=== PATIENT | male | born 1965 | race Caucasian/White ===

== ENCOUNTER 2018-11-14 17:18 | Inpatient (IN) | payer MEDICAID ==
[~2018-11-14 17:18] MED LIST: CA CHLORIDE 10% 10 ML SYRINGE; DEXTROSE 50% 50 ML SYRINGE; EPINEPHrine 0.1 MG/ML SYG; ETOMIDATE 20 MG INJ; NA BICARBONATE 8.4% 50 ML SYG; POTASSIUM CHLORIDE 20 MEQ/SW 50 ML IVPB; SUCCINYLCHOLINE CHLORIDE 100 MG/5 ML SYG IV
[2018-11-14] MEDS: LORAZEPAM 2 MG INJ IV (17:47)
[2018-11-14] MEDS: DILTIAZEM 25 MG INJ IV (17:47)
[2018-11-14] MEDS: PANTOPRAZOLE 40 MG INJ IV (17:48)
[2018-11-14] MEDS ORDERED: FENTAnyl 50 MCG/ML VIAL (17:48)
[2018-11-14] MEDS: LACTATED RINGER'S 1,000 ML IV ×2 (17:52→18:57)
[2018-11-14] MEDS: SOD CHLORIDE 0.9% 1,000 ML IV ×3 (18:00→21:13)
[2018-11-14] MEDS: PROPOFOL 100 ML IV (18:02)
[2018-11-14] MEDS: CEFTRIAXONE 1 GM/50 ML (PMX) 50 ML IVPB (18:02)
[2018-11-14] MEDS: FENTAnyl 50 MCG/ML VIAL IV (18:04)
[2018-11-14] MEDS: ONDANSETRON INJ 8 MG in DEXTROSE 5% 50 ML IVPB (18:52)
[2018-11-14] MEDS: OCTREOTIDE 50 MCG in SOD CHLORIDE 0.9% 25 ML IVPB (18:53)
[2018-11-14] MEDS: PHYTONADIONE 10 MG in DEXTROSE 5% 50 ML IVPB (19:09)
[2018-11-14] MEDS: MIDAZOLAM (DRIP) 50 mg/50 mL 50 ML IV (19:09)
[2018-11-14] MEDS: ACETAMINOPHEN 650 MG SUPP PR (19:15)
[2018-11-14] MEDS: METOPROLOL 5 MG INJ IV (20:16)
[2018-11-14] MEDS: OCTREOTIDE 500 MCG in SOD CHLORIDE 0.9% 49 ML IV (21:02)
[2018-11-14] MEDS ORDERED: ACETAMINOPHEN 650 MG SUPP PR (21:30)
[2018-11-14] MEDS ORDERED: ONDANSETRON 4 MG INJ IV (21:30)
[2018-11-14] MEDS ORDERED: LORAZEPAM 2 MG INJ IV (21:30)
[2018-11-14] MEDS: AMIODARONE 150MG/D5W BOLUS 100 ML IV (21:42)
[2018-11-14] MEDS ORDERED: VANCOMYCIN IV PER PHARMACY XX (23:00)
[2018-11-14] MEDS ORDERED: NORepinephrine 8MG/250 ML (PMX 250 ML (23:15)
[2018-11-14] MEDS ORDERED: PHENYLephrine 20MG IN 250 ML 250 ML IV (23:30)
[2018-11-14] MEDS ORDERED: DEXTROSE 50% 50 ML SYRINGE (23:48)
[2018-11-15] MEDS: PHENYLephrine 20MG IN 250 ML 250 ML IV (00:13)
[2018-11-15] MEDS: SOD CHLORIDE 0.9% 1,000 ML IV ×3 (00:15→00:32)
[2018-11-15] MEDS: DEXTROSE 50% 50 ML SYRINGE IV ×2 (00:16→05:57)
[2018-11-15] MEDS: PANTOPRAZOLE IV 80 MG in SOD CHLORIDE 0.9% 100 ML IV ×3 (00:24→08:29)
[2018-11-15] MEDS ORDERED: DEXTROSE 50% 50 ML SYRINGE IV (00:30)
[2018-11-15] MEDS ORDERED: GLUCOSE GEL 15 GRAM TUBE PO ×2 (00:30)
[2018-11-15] MEDS ORDERED: GLUCAGON 1 MG INJ IM (00:30)
[2018-11-15] MEDS ORDERED: NORepinephrine 8MG/250 ML (PMX 250 ML IV (00:30)
[2018-11-15] MEDS ORDERED: GLUCOSE GEL 15 GRAM TUBE BUCCAL (00:30)
[2018-11-15] MEDS: NORepinephrine 8MG/250 ML (PMX 250 ML IV ×3 (00:40→10:31)
[2018-11-15] MEDS: PROPOFOL 100 ML IV ×2 (00:41→06:12)
[2018-11-15] MEDS: IPRATROPIUM (HFA) 12.9 GM INHALER INH (00:42)
[2018-11-15] MEDS: ALBUTEROL HFA 8 GM INHALER INH (00:42)
[2018-11-15] MEDS: INSULIN ASPART [NOVOLOG] 3 ML PEN SC ×4 (00:46→12:03)
[2018-11-15] MEDS: CEFTRIAXONE 1 GM/50 ML (PMX) 50 ML IVPB (00:56)
[2018-11-15] MEDS: OCTREOTIDE 1 MG in DEXTROSE 5% 95 ML IV (00:58)
[2018-11-15] MEDS: PIPER-TAZO 3.375 GM IV (PMX) 100 ML IVPB ×3 (01:39→11:29)
[2018-11-15] MEDS: PHENYLephrine 80 MG in DEXTROSE 5% 242 ML IV ×3 (01:40→10:32)
[2018-11-15] MEDS ORDERED: NA BICARBONATE 8.4% 50 ML SYG (01:42)
[2018-11-15] MEDS: NA BICARBONATE 8.4% 50 ML SYG IV ×2 (01:47→09:21)
[2018-11-15] MEDS: VANCOMYCIN HCL 1.75 GM in SOD CHLORIDE 0.9% 500 ML IVPB (02:18)
[2018-11-15] MEDS: MIDAZOLAM (DRIP) 50 mg/50 mL 50 ML IV (02:27)
[2018-11-15] MEDS: VASOPRESSIN 60 UNIT in DEXTROSE 5% 57 ML IV (05:55)
[2018-11-15] MEDS: DEXTROSE 5% 1,000 ML IV (06:47)
[2018-11-15] MEDS: DOPamine 800 MG in DEXTROSE 5% 230 ML IV (08:58)
[2018-11-15] MEDS ORDERED: SODIUM BICARBONATE IN D5W 1,000 ML IV (09:00)
[2018-11-15] MEDS: POTASSIUM CHLORIDE 100 ML IVPB ×2 (09:11→10:25)
[2018-11-15] MEDS: SODIUM BICARBONATE IN D5W 1,000 ML IV (09:33)
[2018-11-15] MEDS: LACTATED RINGER'S 1,000 ML IV (11:46)
[2018-11-15] MEDS ORDERED: VANCOMYCIN 1 GM 250 ML IVPB (12:00)
[2018-11-15] MEDS ORDERED: PIPER-TAZO 2.25 GM/NS 50 ML IVPB (18:00)
== END 2018-11-15 12:15 | disposition expired | DRG 871 ==
LOC: E/R 17:18 → ICU 20:05
PROC: 0BH17EZ Insertion of Endotracheal Airway into Trachea, Via Natural or Artificial Opening (ICD-10-PCS; principal; 2018-11-14 23:00)
PROC: 5A1935Z Respiratory Ventilation, Less than 24 Consecutive Hours (ICD-10-PCS; 2018-11-14 23:00)
PROC: 4A133R1 Monitoring of Arterial Saturation, Peripheral, Percutaneous Approach (ICD-10-PCS; 2018-11-14 23:00)
PROC: 0W3P8ZZ Control Bleeding in Gastrointestinal Tract, Via Natural or Artificial Opening Endoscopic (ICD-10-PCS; 2018-11-14 23:00)
PROC: 30233K1 Transfusion of Nonautologous Frozen Plasma into Peripheral Vein, Percutaneous Approach (ICD-10-PCS; 2018-11-14 23:00)
PROC: 30233N1 Transfusion of Nonautologous Red Blood Cells into Peripheral Vein, Percutaneous Approach (ICD-10-PCS; 2018-11-14 23:00)
PROC: 30233R1 Transfusion of Nonautologous Platelets into Peripheral Vein, Percutaneous Approach (ICD-10-PCS; 2018-11-14 23:00)
DX: A41.9 Sepsis, unspecified organism (principal); J96.01 Acute respiratory failure with hypoxia; J96.02 Acute respiratory failure with hypercapnia; R65.21 Severe sepsis with septic shock; I85.11 Secondary esophageal varices with bleeding; N39.0 Urinary tract infection, site not specified; D68.9 Coagulation defect, unspecified; F10.288 Alcohol dependence with other alcohol-induced disorder; C18.9 Malignant neoplasm of colon, unspecified; K76.6 Portal hypertension; I10 Essential (primary) hypertension; D69.6 Thrombocytopenia, unspecified; I46.9 Cardiac arrest, cause unspecified; Z66 Do not resuscitate; K70.31 Alcoholic cirrhosis of liver with ascites; D64.9 Anemia, unspecified; K31.89 Other diseases of stomach and duodenum
CPT/HCPCS: 31500; 36415; 36430; 36600; 70450; 71045; 80053; 80307; 81001; 82803; 82962; 83605; 83690; 83735; 84100; 84484; 85025; 85335; 85610; 85730; 86644; 86850; 86900; 86901; 86920; 86945; 87040-91; 87086; 92950; 93005; 93306; 94002; 94003; 94640; 94770; 96374; 96375; 99285-25